=== PATIENT | female | born 1975 | race Caucasian/White ===

== ENCOUNTER 2020-09-21 08:08 | Observation (INO) ==
--- NOTE | 2020-09-11 13:04 | Anesthesiology Consultation ---
Date of Service September 11, 2020 Assessment & Plan (1) Encounter for pre-operative examination: - COVID screening: Per assessment on 09/11: Travel screen negative, no known COVID-19 positive contacts or current COVID-19 related symptoms. Patient vaccinated. Patient gets weekly testing per protocol at work at [employer]- no further details per PAT RN (which have previously been negative). Surgeon arranging preop COVID testing. Awaiting results. - S/P D&E, hysteroscopy (04/26/20): Grade view 1, MAC#3, ETT 7.0 at [facility] - Check test AM DOS Chart Review Chart Review: Acceptable Risk for Surgery and Patient NOT seen in Pre Admission Testing History Surgery Operation Date: 09/21/20 10:05 Proposed Procedures p Total Laparoscopic Hysterectomy, Bilateral Salpingectomy, Cystoscopy, Possible Laparotomy - Mahesh Ryan MD Height/Weight Height: 5 ft 6 in Weight: 78.018 kg Allergies Allergy/AdvReac Type Severity Reaction Status Date / Time No Known Allergies Allergy Unknown Verified 09/11/20 10:25 Medications Home Medications Medication Instructions Recorded Confirmed Last Taken levocetirizine 5 mg tablet 5 mg PO HS 10/04/19 09/11/20 Unknown ascorbic acid (vitamin C) 500 mg PO QAM 04/26/20 09/11/20 09/06/20 norethindrone acetate [Aygestin] 15 mg PO BID 06/15/20 09/11/20 09/06/20 multivitamin 1 tab PO QAM 09/06/20 09/11/20 09/06/20 Lactobacillus acidophilus 10,000 mmu cells PO QAM 09/11/20 09/11/20 Unknown [Probiotic] albuterol sulfate 1 inh INHALATION QID PRN 09/11/20 09/11/20 Unknown Past Medical History Medical History Anemia Asthma Menorrhagia Seasonal allergies Past Family History Family History Other Cancer Hypertension No family history of adverse response to anesthesia Prostate cancer Denies family history of Ovarian cancer Breast cancer Colorectal cancer Past Surgical History Surgical History H/O hernia repair Inguinal History of dilatation and curettage D&E, hysteroscopy (04/26/20): Grade view 1, MAC#3, ETT 7.0 at [facility] History of suburethral sling procedure History of tonsillectomy [place] teeth removed Social History Smoking Status: Never smoker Hx Alcohol Use: Yes Alcohol type: wine alcohol intake frequency: a few times a month substance use type: does not use Lab Results Anesthesia Preop Results Results Anesthesia Widget: WBC 12.34 K/uL (4.8-10.8) H 09/06/20 Hgb 12.7 g/dL (12.0-16.0) 09/06/20 Hct 40.0 % (37-47) 09/06/20 Plt 293 K/uL (130-400) 09/06/20 Na 140 mmol/L (136-145) 09/06/20 K 4.3 mmol/L (3.5-5.1) 09/06/20 Cl 109 mmol/L (98-107) H 09/06/20 CO2 25 mmol/L (21-32) 09/06/20 BUN 14 mg/dl (7-18) 09/06/20 Creat 0.65 mg/dl (0.6-1.2) 09/06/20 Glucose Level 95 mg/dl (70-99) 09/06/20 PT 10.0 Seconds (9.0-12.0) 09/06/20 PTT 29.2 Seconds (21.0-31.0) 09/06/20 INR 1.0 (0.9-1.1) 09/06/20 Blood Type O Positive 09/06/20 Antibody Screen NEGATIVE 09/06/20 Testing Electrocardiogram Date: 04/26/20 Findings: + NSR @ (69)
[~2020-09-21 08:08] MED LIST: LACTATED RINGER'S 1,000 ML IV SCH; LR 15ML/HR IV SCH; ceFAZolin 2000MG 2,000 MG/15 ML SYR IV SCH
[2020-09-21] MEDS ORDERED: HYDROmorphone INJ 2 MG/ML SYR/VIAL IV PRN (09:33)
[2020-09-21] MEDS ORDERED: ePHEDrine sulfate 50 MG/ML AMP IV PRN (09:33)
[2020-09-21] MEDS ORDERED: ONDANSETRON INJ 2 MG/ML 2 ML VIAL IV PRN ×2 (09:33→15:41)
[2020-09-21] MEDS ORDERED: ATROPINE SULFATE 0.1 MG/ML 10ML SYR IV PRN (09:33)
[2020-09-21 09:46] LABS: Pregnancy Test, Serum Negative (Negative)
[2020-09-21] MEDS ORDERED: MIDAZOLAM HCL 1 MG/ML 2ML VIAL ONE (09:56)
[2020-09-21] MEDS ORDERED: fentaNYL citrate 100 MCG/2 ML VIAL ONE ×3 (09:56→13:30)
[2020-09-21] MEDS ORDERED: DEXAMETHASONE SOD INJ 4 MG/ML VIAL ONE (09:56)
[2020-09-21] MEDS ORDERED: ONDANSETRON INJ 2 MG/ML 2 ML VIAL ONE (09:56)
[2020-09-21] MEDS ORDERED: LIDOCAINE 2% 2 ML VIAL/AMP(20MG/ML) INFIL ONE ×2 (09:56→13:12)
[2020-09-21] MEDS ORDERED: GLYCOPYRROLATE 0.2 MG/ML VIAL ONE (09:56)
[2020-09-21] MEDS ORDERED: PROPOFOL IV EMULSION 10 MG/ML 20 ML VIAL IV ONE (09:56)
[2020-09-21] MEDS ORDERED: NEOSTIGMINE METHYLSULFATE 1 MG/ML 10ML VIAL ONE (09:56)
[2020-09-21] MEDS ORDERED: BUPIVACAINE/EPINEPHRINE 0.5% MPF 1:200,000 30 ML VIAL ONE (10:45)
--- NOTE | 2020-09-21 10:54 | History & Physical Bridge Note ---
Date of Service September 21, 2020 History & Physical Bridge Note I have examined the patient, reviewed the History & Physical and in the interval since the performance of the History & Physical I have noted the following changes of clinical significance: no changes noted
[2020-09-21] MEDS ORDERED: MINERAL OIL LIGHT 10 ML BTL ONE (11:12)
[2020-09-21] MEDS ORDERED: METHYLENE BLUE 0.5% 10 ML VIAL ONE (11:12)
[2020-09-21] MEDS ORDERED: BUPIVACAINE 0.5 % 5 MG/1 ML MPF 30ML VIAL ONE (11:12)
[2020-09-21] MEDS ORDERED: ROCURONIUM BROMIDE 10 MG/ML 5 ML VIAL IV ONE ×2 (12:36→13:33)
[2020-09-21] MEDS ORDERED: TISSEEL FIBRIN SEALANT 10ML TOP ONE (14:11)
[2020-09-21] MEDS: fentaNYL citrate 100 MCG/2 ML VIAL IV PRN ×2 (15:39→15:44)
[2020-09-21] MEDS ORDERED: bisacodyL 10 MG SUPP PR PRN (15:41)
[2020-09-21] MEDS ORDERED: ZOLPIDEM TARTRATE 5 MG TAB PO PRN (15:41)
[2020-09-21] MEDS ORDERED: SIMETHICONE 80 MG CHEW PO PRN (15:41)
[2020-09-21] MEDS ORDERED: PROMETHAZINE HCL 12.5 MG in SODIUM CHLORIDE 0.9% 50 ML IV PRN (15:41)
[2020-09-21] MEDS ORDERED: oxyCODONE/ACETAMINOPHEN 5mg/325mg TAB PO PRN ×2 (15:41)
[2020-09-21] MEDS ORDERED: MAGNESIUM HYDROXIDE SUSP 30 ML UDC PO PRN (15:41)
--- NOTE | 2020-09-21 15:41 | Post Operative Brief Note ---
Immediate Post Op Note v1 Date of Surgery September 21, 2020 Pre & Post Diagnosis Operation Date: 09/21/20 10:00 Pre-Op Diagnosis: Menorrhagia, Fibroid Uterus Post-Op Diagnosis: Menorrhagia, Fibroid Uterus I identified the patient and participated in the time-out.: Yes Procedure Operation Date: 09/21/20 10:00 Actual Procedures p Total Laparoscopic Hysterectomy, Bilateral Salpingectomy, Cystoscopy(Not Applicable) - Mahesh Ryan MD Surgeon Mahehs Ryan MD Heel Stainer hannah cardona Estimated Blood Loss 50 Findings Consistent with Post-Op Diagnosis Drains Beverly Catheter (At start of procedure, a 16 Sami beverly catheter was inserted by Dr. Ryan, clear yellow urine obtained, output to be monitored by Anesthesia.)
[2020-09-21] MEDS ORDERED: LACTATED RINGER'S 1,000 ML IV SCH (15:45)
--- NOTE | 2020-09-21 16:03 | Anesthesiology Progress Note ---
Date of Service September 21, 2020 Anesthesia Post Procedure Vital Signs Vital Signs: Temp Pulse Pulse Resp BP BP Pulse Ox 09/21/20 15:50 98.6 F 99 H 17 132/87 96 09/21/20 15:40 98 H 18 129/83 95 09/21/20 15:30 87 18 139/81 100 09/21/20 15:20 85 17 135/78 100 09/21/20 15:11 98.4 F 99 H 16 139/79 99 09/21/20 08:32 98.6 F 84 18 147/85 H 98 Pain Intensity Abdomen: Pain Intensity: 4 Transfer of Care Handoff Completed per policy Notes Mental Status: alert / awake / arousable and participated in evaluation Patient Amnestic to Procedure: Yes Nausea / Vomiting: adequately controlled Pain: adequately controlled Airway Patency, RR, SpO2: stable & adequate BP & HR: stable & adequate Hydration State: stable & adequate Anesthetic Complications: no major complications apparent and Pt Satisfied with anesthetic care
[2020-09-21] MEDS: IBUPROFEN 600 MG TAB PO PRN ×2 (17:09→20:48)
[2020-09-21 20:25] LABS: Hematocrit (blood only) 31.3 % (37-47); Hemoglobin 9.5 g/dL (12.0-16.0)
[2020-09-21] MEDS ORDERED: DOCUSATE SODIUM 100 MG CAP PO SCH (21:00)
--- NOTE | 2020-09-21 23:26 | Operative Report (OR) ---
DATE OF PROCEDURE: 09/21/2020. INDICATION FOR SURGERY: This is a 45-year-old with menorrhagia and fibroid uterus. PREOPERATIVE DIAGNOSES: 1. Menorrhagia. 2. Fibroid uterus. POSTOPERATIVE DIAGNOSES: 1. Menorrhagia. 2. Fibroid uterus. SURGEON: Mahesh Ryan MD SENIOR NET ENGINEER: Krystin Javier. PROCEDURE: 1. Total laparoscopic hysterectomy with bilateral salpingectomy. 2. Cystoscopy. ESTIMATED BLOOD LOSS: 50 mL. INTRAVENOUS FLUIDS: 1200 mL. URINE OUTPUT: 300 mL. SPECIMENS: Uterus, cervix, and bilateral tubes. COMPLICATIONS: None. DRAINS: None. INTRAOPERATIVE CONSULTATIONS: None. DESCRIPTION OF PROCEDURE: The patient was taken to the operating room where she was prepped and drap ed in normal sterile fashion. Time-out was called. Heavy weighted speculum was placed in the vagina and a Moreau catheter was placed in the bladder. A large-sized VCare was placed up on the cervix to help manipulate the uterus during laparoscopy. The uterus prior to the procedure sounded to 12 cm. Attention was paid to the abdominal part of the procedure where a supraumbilical incision was made wi th an 11 blade and carried down to the fascia. Veress needle was introduced in the abdomen at a 45-d egree angle while tenting up the abdomen. Intra-abdominal placement was confirmed with a water-filled syringe, water drop and suction test were performed. The abdomen was insufflated with 4 L of CO2 ga s. Veress needle was removed and a 10 mm 30-degree scope with trocar was introduced into the abdomen under direct visualization. Once inside the abdomen, findings showed a 12- to 14-week size uterus. Both ovaries appeared grossly normal as well as fallopian tubes. The patient had had previous appen dectomy. Otherwise, the abdominopelvic exam was unremarkable. Three more accessory ports were place d under direct visualization, two 10 mm ports on the left and a 5 mm port on the right. These were a ll placed under direct visualization. The right round ligament was identified and transected with th e LigaSure, so was the fallopian tube on the left side and the uteroovarian ligament. The mesosalpin x was also grabbed and fulgurated. Anterior leaf of the broad ligament was transected with the 5 mm LigaSure and the transection was carried down to the mid portion of the vesicouterine peritoneum chuy g the bladder line. Same procedure was performed on the contralateral side. Bladder was carefully d issected off the lower segment of the uterus. Using traction and countertraction, this dissection wa s carefully performed, there was very little bleeding. The posterior leaf of the broad ligament was also carefully dissected from both sides. At this point, the uterine manipulator could easily be jean ntified and palpated. The loops portion of the 5 mm LigaSure was used to perform colpotomy from ante rior to lateral on both sides. Posterior colpotomy was also performed. The uterus was at this point carefully dissected off and from the vagina. Because the procedure involved bilateral eliza pingectomy, the left fallopian tube was positioned anteromedially and transected using the 5 mm LigaS ure. There was good hemostasis. Same procedure was performed on the contralateral side. All instru ments were removed from the vagina and sent to pathology for pathologic analysis. Copious amount of irrigation was used to irrigate the abdomen. At this point, the colpotomy was closed using the Endo Stitch and Lapra-Ty. There was good hemostasis after closure. FloSeal was sprayed along the incisio n site. Laparoscopic instruments at this point were removed from the abdomen once good hemostasis wa s confirmed. Attention was paid to the cystoscopy part of the procedure, where a 70-degree scope was introduced in to the bladder. The bladder appeared grossly normal. There were no masses or lesions seen in the bl adder. Bubble sign was present during hysteroscopy. The left and right urethral orifice was seen je tting methylene blue dye, which was given earlier. The hysteroscope was removed. Vaginal examinatio n was done at this time and it was evident that the vaginal cuff has been closed. Attention was paid back to the abdominal part of the procedure to close the laparoscopic trocar sites . The 10 mm sites were closed in 2 layers, first layer closed under direct visualization with Vito -Jamie instrument sets. Fascia was irrigated and closed with 2-0 plain and the skin was closed wi th 4-0 Monocryl. The 5 mm trocar sites were closed with Dermabond. There was good hemostasis. The patient was sent to recovery in stable condition. Job ID: [id number]
[2020-09-22] MEDS: IBUPROFEN 600 MG TAB PO PRN ×3 (00:49→10:16)
[2020-09-22 07:09] LABS: Basophils # (auto) 0.01 K/uL (0-0.2); Basophils % (auto) 0.1 %; Hematocrit (blood only) 29.1 % (37-47); Hemoglobin 8.8 g/dL (12.0-16.0); Immature Granulocytes # (auto) 0.04 K/uL (0.00-0.02); Immature Granulocytes % (auto) 0.2 %; Lymphocytes # (auto) 1.03 K/uL (1.2-3.4); Lymphocytes % (auto) 5.9 %; Mean Corpuscular Hemoglobin 26.6 pg (25-34); Mean Corpuscular Hgb Conc 30.2 g/dL (32-36); Mean Corpuscular Volume 87.9 fL (80-100); Monocytes # (auto) 1.83 K/uL (0.11-0.59); Monocytes % (auto) 10.6 %; Neutrophils # (auto) 14.41 K/uL (1.4-6.5); Neutrophils % (auto) 83.2 %; Platelet Count 452 K/uL (130-400); RDW Coefficient of Variation 16.9 % (11.5-14.5); RDW Standard Deviation 54.2 fL (36.4-46.3); Red Blood Count 3.31 M/uL (4.2-5.4); White Blood Count 17.32 K/uL (4.8-10.8)
[2020-09-22 07:35] LABS: Calcium 7.9 mg/dl (8.5-10.1); Creatinine Clr Calc Pharmacy 112.1 ml/min; Est GFR (African American) 121.9 ml/min; Est GFR (Non-African American) 105.2 ml/min; Potassium 4.2 mmol/L (3.5-5.1)
--- NOTE | 2020-09-22 09:52 | Progress Note ---
Date of Service September 22, 2020 Assessment & Plan (1) Postop check: s/p lap hyst pt doing well d/c home with instructions Admission and Anticipated Discharge Date Admission Date: September 21, 2020 Review of Systems Review of Systems: All systems reviewed & are unremarkable except as noted in HPI & below Physical Exam Constitutional: WD/WN, vitals as above Eyes: PERRL, conjunctivae normal, anicteric sclerae ENMT: external ear and nose normal, oropharynx normal Neck: trachea midline, no thyromegaly Respiratory: normal respiratory effort, lungs clear to auscultation Cardiovascular: RRR, no murmur, no edema Chest (Breasts): normal inspection/palpation of breasts Gastrointestinal (Abdomen): normal bowel sounds, soft, nontender, no hepatosplenomegaly Musculoskeletal: no cyanosis or clubbing, extremities motor strength 5/5 Skin: + incision (Incision clean,dry and intact) Neurologic: patellar DTR's 2+ bilat, sensation intact Psychiatric: A+Ox3, euthymic affect Genitourinary: no vaginal lesions, no adnexal mass Lymphatic: no cervical or axillary lymphadenopathy Results & Data ([facility]) Vital Signs (Past 12 Hours) Vital Signs Temp Pulse Resp BP Pulse Ox 09/22/20 07:30 37 C 78 18 122/73 97 09/22/20 04:30 37.4 C 98 H 16 118/70 97 09/22/20 00:30 37.4 C 99 H 16 133/78 96
--- NOTE | 2020-09-30 01:41 | Discharge Summary (DS) ---
DATE OF DISCHARGE: 09/22/2020 CHIEF COMPLAINT: 1. Menorrhagia. 2. Fibroid uterus. HISTORY OF PRESENT ILLNESS: This is a 45-year-old who underwent total laparoscopic hysterectomy with bilateral salpingectomy and cystoscopy for menorrhagia and fibroid uterus. Details of surgery are i n the procedure note. The patient did well and stayed overnight for observation. She was discharged home in stable condition on 09/22/2020. PAST MEDICAL HISTORY: 1. Menorrhagia. 2. Fibroid uterus. PAST SURGICAL HISTORY: History of inguinal hernia at age 3. The patient has also had a history of t onsils and adenoids removed. SOCIAL HISTORY: The patient is a . ALLERGIES: No known drug allergies. REVIEW OF SYSTEMS: Noncontributory. FAMILY HISTORY: Noncontributory. PHYSICAL EXAMINATION: VITAL SIGNS: On 09/22/2020 showed the following, blood pressure 132/73, pulse 78, respirations 18, t emperature 37. HEART: S1, S2, regular rhythm and rate. LUNGS: Clear to auscultation bilaterally. ABDOMEN: Nontender and nondistended. The incision sites are clean, dry, and intact. EXTREMITIES: No cyanosis, clubbing or edema. LABORATORY DATA: On 09/22/2020 showed hemoglobin of 8.8, hematocrit of ____. CONDITION ON DISCHARGE: Stable. OPERATIONS: Total laparoscopic hysterectomy with bilateral salpingectomy. DISCHARGE DIAGNOSIS: Postop. PLAN ON DISCHARGE: The patient discharged home with instructions regarding activity, diet, followup appointment, and medications. Job ID: [id number]
== END 2020-09-22 11:09 | disposition home or self-care (01) ==
LOC: 4S2 08:08 → ASU 08:08